=== PATIENT | male | born 1955 | race Caucasian/White ===

== ENCOUNTER → 2019-05-18 | Outpatient (CLI) | payer OTHER ==
[~2019-05-18] MED LIST: ASPIRIN81 M2 PO; ATORVASTATIN CA40 MG PO; BYSTOLIC 5 MG5 M1 PO; LISINOPRIL20 MG PO; NEXIUM40 MG PO; ONE-A-DAY MEN'1 EAC2 PO
== END ==
LOC: SJCVC 08:00
DX: I25.10 Atherosclerotic heart disease of native coronary artery without angina pectoris (principal); I10 Essential (primary) hypertension; K21.9 Gastro-esophageal reflux disease without esophagitis; E78.00 Pure hypercholesterolemia, unspecified; Z95.1 Presence of aortocoronary bypass graft; Z79.899 Other long term (current) drug therapy

== ENCOUNTER → 2019-06-17 | Outpatient (CLI) | payer OTHER | LOC: SJCVCIMAG 09:18 | DX: I35.8 Other nonrheumatic aortic valve disorders (principal); R00.0 Tachycardia, unspecified; I25.810 Atherosclerosis of coronary artery bypass graft(s) without angina pectoris; I11.0 Hypertensive heart disease with heart failure; I50.9 Heart failure, unspecified; E78.5 Hyperlipidemia, unspecified; Z79.82 Long term (current) use of aspirin; Z79.899 Other long term (current) drug therapy; Z95.1 Presence of aortocoronary bypass graft ==

== ENCOUNTER → 2019-06-28 | Outpatient (CLI) | payer OTHER ==
[~2019-06-28] MED LIST changes: +ASA81BEC PO; +IMDUR 60 MG TAB60 M1 PO; +NITROGLYCERIN0.4 MG SUBLING; +OMEPRAZOLE40 MG PO
== END ==
LOC: SJCVC 14:32
DX: I25.118 Atherosclerotic heart disease of native coronary artery with other forms of angina pectoris (principal); I10 Essential (primary) hypertension; K21.9 Gastro-esophageal reflux disease without esophagitis; E78.00 Pure hypercholesterolemia, unspecified; Z95.1 Presence of aortocoronary bypass graft; Z79.899 Other long term (current) drug therapy

== ENCOUNTER → 2019-07-07 | Outpatient (CLI) | payer OTHER ==
[~2019-07-07] VITALS: Ht 172.7 cm; Wt 80.7 kg
[2019-07-07 10:15] VITALS: BP 141/82
[2019-07-07 10:22] LABS: HEMATOCRIT 45.6 % (42.0-52.0); HEMOGLOBIN 15.8 gm/dL (14.0-18.0); MCHC 34.6 g/dL (28.0-37.0); MCV 98.2 fL (80.0-100.0); RBC 4.64 mil/uL (4.50-6.00); RDW 12.3 % (10.5-14.5); WBC 6.7 thou/uL (4.0-11.0)
[2019-07-07 10:28] LABS: CALCIUM 9.3 mg/dL (8.5-10.1); CREATININE 1.1 mg/dL (0.7-1.3)
[2019-07-07 10:54] VITALS: BP 141/82
--- NOTE | 2019-07-14 15:19 | CATHLAB ---
[facility] [place] [address] INVASIVE PROCEDURE REPORT Name: SHERYL ROMERO Room #: REG CAMERON Manuel#: [id number] Admission: 07/07/19 Attend Phys: Michael Hughes Discharge: Date of : 53 Report #: [id number] THIS REPORT FOR: cc: Nader Munoz MD, Christopher B. MD Lammoglia, Francisco J. MD ~ APPROVED REPORT Study performed: 07/07/2019 11:11:56 Patient Details Patient Status: Out-Patient Room #: The patient is a 64 year-old male Event Personnel Michael Hughes Account Development Manager, Shayan Moreno RN, Cee Harvey RTR, STRING TOP SEALER Monitor, Camacho Doshi RTR Scrub Procedures Performed Art Access - R femoral artery* Left Heart Cath Coronaries, Bypass Grafts [id number] 91101 Initial Mod Sed Same Phys/QHP Gr 106999 55320 Mod Sed Same Phys/QHP Ea [id number] Hemostasis with Manual pressure, supervision of conscious sedation Indication Positive stress test Procedure Narrative The Right Groin^ was infiltrated with 1% Lidocaine subcutaneous anesthesia. A PINNACLE 4FR Sheath #[id number] sheath was inserted into the RFA^. Coronary angiography was performed using coronary diagnostic catheters. The right coronary system was accessed and visualized with a JR4 catheter. The left coronary system was accessed and visualized with a JL4 catheter. The left ventricle was accessed and visualized with a JR4 catheter. Left ventricular/Aortic Valve gradient assessed via catheter pullback. Hemostasis was obtained with manual pressure following sheath removal without any complications. There was no hematoma. Intraoperative Conscious Sedation Sedation start time: 11:40 Case end Time: 12:18 Versed 2 mg [facility] [address] [place] [address] INVASIVE PROCEDURE REPORT Name: SHERYL ROMERO RISHABH Room #: REG FILIBERTO Jackson#: [id number] Admission: 07/07/19 Attend Phys: Michael Chambers Discharge: Date of : 53 Report #: [id number] Fluoro Time: 12.00 minutes Dose: DAP 5924.00 cGycm2 1053 mGy Contrast Type and Amount: Omnipaque 45 ml Coronary Angiography The patient's coronary anatomy is right dominant. [place] Artery Percent Stenosis Grafts (Complete if Previous CABG=Yes: Percent Stenosis) Left Main: % Prox LAD: % Mid/Distal LAD: 0 % Circumflex: 100 % RCA: % Ramus: %Left internal mammary graft artery is of normal origin has smooth contours and anastomosis is widely patent. There is no significant abnormalities noted. Left circumflex graft is not able to be cannulated from the aorta but visualization of the marginal branches at locations of insertion from the graft shows no competitive flow indicating occlusion of the saphenous vein graft Diagnostic Cath Left Main Normal origin moderate caliber vessel has a proximal tapering of 30% but no high-grade lesions. It trifurcates into left anterior descending ramus intermedius and left circumflex coronary vessel LAD Small to moderate caliber type II vessel which is completely occluded proximally. The mid and distal fill via left internal mammary graft which is widely patent. There is only luminal irregularities noted. Diagonal 1 Small insignificant caliber vessel Circumflex Small caliber vessel coursing posteriorly giving rise to a small to moderate caliber lateral wall marginal branch. There is luminal irregularities noted in this marginal vessel but no high-grade lesions present throughout the entire circumflex. Circumflex and finishes is a small diminutive caliber vessel in the posterior AV groove OM1 Small to moderate caliber vessel with a proximal 30% irregularity otherwise no high-grade lesions present Right Coronary Moderate caliber vessel which has a proximal lan's crook deformity with a narrowing of approximately 50%. The vessel continues on to the crux of the heart giving rise to a posterior descending artery which is small and terminates as a posterior lateral branch with distal vessel being less than 1 mm in diameter and having moderate to significant stenosis. It is too small for intervention. At the acute margin a small caliber RV marginal branch originates with only luminal irregularity R PDA Small caliber vessel without high-grade lesions diminutive in [address] [address] INVASIVE PROCEDURE REPORT Name: SHERYL ROMERO Room #: REG FILIBERTO Jackson#: [id number] Admission: 07/07/19 Attend Phys: Michael Chambers Discharge: Date of : 53 Report #: [id number] size Ramus Small-caliber vessel normal origin proceeds along the lateral aspect of the heart without high-grade lesions present. No luminal irregularities are noted. It appears angiographically normal Left Ventriculography Left Ventriculography was not performed. Hemodynamics The aortic pressure is 135/77 mmHg with a mean of 101 mmHg. The left ventricular pressure is 136/3 mmHg with a mean of mmHg. The left ventricular end diastolic pressure is 11 mmHg. Conclusion 1. Coronary artery disease status post aortocoronary bypass grafting with mild to moderate [place] vessel disease. 2. Widely patent and angiographically normal left internal mammary artery graft to the LAD 3. Unable to cannulate saphenous vein grafts but the absence of competitive flow in the insertion portion of the marginal branches suggest total occlusion 4. Normal hemodynamic Recommendations Cardiac Risk Reduction Program Medical Therapy <ELECTRONICALLY SIGNED> By: Michael Hughes MD 07/14/19 151 16 16 Michael Hughes MD /INF
== END | disposition home or self-care (01) ==
LOC: CATH 09:37
PROVIDERS: Internal Medicine
DX: R07.9 Chest pain, unspecified (principal); I25.10 Atherosclerotic heart disease of native coronary artery without angina pectoris; I10 Essential (primary) hypertension; I25.2 Old myocardial infarction; K21.9 Gastro-esophageal reflux disease without esophagitis; Z95.1 Presence of aortocoronary bypass graft; Z98.890 Other specified postprocedural states; Z79.899 Other long term (current) drug therapy; Z82.49 Family history of ischemic heart disease and other diseases of the circulatory system; Z79.82 Long term (current) use of aspirin

== ENCOUNTER → 2020-11-08 | Outpatient (CLI) | payer OTHER | LOC: SJCVC 10:00 | PROVIDERS: ATTEND Internal Medicine | DX: I25.10 Atherosclerotic heart disease of native coronary artery without angina pectoris (principal); I10 Essential (primary) hypertension; E78.5 Hyperlipidemia, unspecified; I49.9 Cardiac arrhythmia, unspecified; E78.00 Pure hypercholesterolemia, unspecified; K21.9 Gastro-esophageal reflux disease without esophagitis; Z95.1 Presence of aortocoronary bypass graft; Z79.82 Long term (current) use of aspirin; Z79.899 Other long term (current) drug therapy; Z72.89 Other problems related to lifestyle ==